=== PATIENT | male | born 1995 | race Caucasian/White ===

== ENCOUNTER 2024-07-11 16:53 | Emergency (ER) | payer OTHER ==
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
[2024-07-11] MEDS ORDERED: IBUPROFEN 200 MG TAB PO ONE (17:22)
[2024-07-11] MEDS ORDERED: CYCLOBENZAPRINE 10 MG TAB ONE (17:23)
[2024-07-11] MEDS ORDERED: IBUPROFEN 400 MG TAB ONE (17:23)
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
[2024-07-11 18:07] VITALS: BP 126/83; TEMP 98; O2SAT 95
--- OUTSIDE RECORDS SUMMARY | 2024-07-11 21:22 | XMS REPORT | Continuity of Care Document ---
Author Name Unknown Address [address] [place] [address] Organization [facility] [place] Address [address] [place] [address] Care Team Providers Care Customer Data Technician Name Role Phone KERRY MCKEON Primary Care Physician Unavailab le UNKNOWN, ATTENDING Attending Clinician Unavailab CATRINA Brar Attending Clinician Unavail able Catrina Ruiz MD Attending Clinician NurseFarrukh Pedpamela Attending Clinician Unavaila ble Unknown, Attending Attending Clinician Unavailab Kerry Connolly PA-C Attending Clinician [phone] KERRY MCKEON Attending Clinician Unavailable 2, [facility] Attending Clinician Unavailable Addison Merchant Attending Clinician [phone] ADDISON SARAVIA Attending Clinician Unavailable YANI SALAZAR Attending Clinician Unavailable VIVEK DANIELS Attending Clinician Unavail able [facility] Attending Clinician Unavailable Unknown, Attending Attending Clinician Unavailab le NurseFarrukh Urgent Attending Clinician UnavailAlex Cheney MD Attending Clinician [phone] Kerry Mckeon PA-C Attending Clinician ALEX MARTÍNEZ Attending Clinician Unavailable Jessica Carlton Attending Clinician JESSICA BARRETT Attending Clinician Unavailable Only, Kemar Roberts Test Attending Clinician Unavailabl e Atilio Becker Attending Clinician + [phone] ATILIO ESCALANTE Attending Clinician Unavailab le Provider, [facility] Attending Clinician Unavailable Doctor Unassigned, Maeser Attending Clinician U navailable Payers Payer Name Policy Type Policy Number Effective Date Expirati on Date Source [facility] [id number] 2023 00:00:00 Problems Condition Name Condition Details Condition Category Status Onset Date Resolution Date Last Treatment Date Treating Clinician Comments Source No known active problems No known active problems Disease [facility] Allergies, Adverse Reactions, Alerts Allergy Name Allergy Type Status Severity Reaction(s) Onset Date Inactive Date Treating Clinician Comments Source NO KNOWN ALLERGIE S Drug Class Active [facility] Social History Social Habit Start Date Stop Date Quantity Comments Source [facility]coholic beverage intake 2024-04-26 00:00:00 2024-04-26 00:00:00 Current drinker of alcohol (finding) [facility] History of Social function 2024-04-26 00:00:00 2024-04-26 00:00:00 [facility] Exposure to SARS-CoV-2 (event) 2022-06-20 00:00:00 2022-06-30 09:22:00 Not sure [facility] History SDOH Alcohol Frequency 2022-06-16 00:00:00 2022-06-16 00:00:00 1 [facility] History SDOH Alcohol Std Drinks 2022-06-16 00:00:00 2022-06-16 00:00:00 0 [facility] History SDOH Alcohol Binge 2022-06-16 00:00:00 2022-06-16 00:00:00 1 [facility] History SDOH Social Connections Phone 2022-06-16 00:00:00 2022-06-16 00:00:00 5 [facility] History SDOH Social Connections Get Together 2022-06-16 00:00:00 2022-06-16 00:00:00 1 [facility] SDOH Social Connections Religion 2022-06-16 00:00:00 2022-06-16 00:00:00 1 [facility] SDOH Social Connections Membership 2022-06-16 00:00:00 2022-06-16 00:00:00 1 [facility] SDOH Social Connections Meetings 2022-06-16 00:00:00 2022-06-16 00:00:00 3 [facility] SDOH Social Connections Living 2022-06-16 00:00:00 2022-06-16 00:00:00 3 [facility] SDOH Physical Activity DPW 2022-06-16 00:00:00 2022-06-16 00:00:00 7 [facility] SDOH Physical Activity MPS 2022-06-16 00:00:00 2022-06-16 00:00:00 15 [facility] SDOH Stress 2022-06-16 00:00:00 2022-06-16 00:00:00 1 [facility] SDOH Financial 2022-06-16 00:00:00 2022-06-16 00:00:00 3 [facility] History SDOH Food Worry 2022-06-16 00:00:00 2022-06-16 00:00:00 2 [facility] SDOH Food Scarcity 2022-06-16 00:00:00 2022-06-16 00:00:00 2 [facility] History SDOH Transport Med 2022-06-16 00:00:00 2022-06-16 00:00:00 2 [facility] History SDOH Transport Non-Med 2022-06-16 00:00:00 2022-06-16 00:00:00 1 [facility] History SDOH Housing Unable to Pay 2022-06-16 00:00:00 2022-06-16 00:00:00 1 [facility] History SDOH Housing Places Lived 2022-06-16 00:00:00 2022-06-16 00:00:00 4 [facility] History SDOH Housing Homeless Last Year 2022-06-16 00:00:00 2022-06-16 00:00:00 1 [facility] Sex assigned at 1995 00:00:00 1995 00:00:00 [facility] Smoking Status Start Date Stop Date Source Never smoked tobacco [facility] Medications Ordered Medication Name Filled Medication Name Start Date Stop Date Current Medication? Ordering Clinician Indication Dosage Frequency Signature (SIG) Comments Components Source fluticasone propionate 50 mcg/actuati on nasal spray 2020-02 00:00: 00 07-21 00:00 :00 No [id number] 1{spray } Use 1 [place] in each nostril daily. [facility] cetirizine 10 mg tablet 2020-02 00:00: 00 05-12 04:59 :00 No [id number] 10mg Take 1 tablet by mouth daily for 90 days. [facility] Guaifenesin 1,200 mg tablet 2020-02 00:00: 00 02-25 05:59 :00 No [id number] 1200mg Take 1 tablet by mouth 2 (two) times daily for 14 days. [facility] benzonatate 200 mg capsule 2020-02 00:00: 00 02-21 05:59 :00 No [id number] 200mg Take 1 capsule by mouth 3 (three) times daily as needed for Cough for up to 10 days. [facility] traMADOL (ULTRAM) 50 mg tablet 2017-02 00:00: 00 07-21 00:00 :00 No 50mg Take 1 tablet by mouth every 6 (six) hours as needed for Pain (scale 7-10). [facility] Immunizations Ordered Immunization Name Filled Immunization Name Date Status Comments Source HPV9 2023-11-04 00:00:00 Completed [facility] Influenza Virus Vaccine 2023-10-29 00:00:00 Completed Influenza Virus Vaccine Quad IM, Preserv and ABX Free 6 MO-64 YRS (FLUCELVAX) 2023-02-14 00:00:00 Completed [facility] HEP B, Adult Dosage 2020-11-26 00:00:00 Completed [facility] Meningococcal Polysaccharide (groups A, C, Y and W-135) conjugate vaccine (MCV4P) 2020-11-26 00:00:00 Completed Influenza Virus Vaccine Quad ID [id number] 2020-11-26 00:00:00 Completed Influenza Virus Vaccine 2020-11-26 00:00:00 Completed HEP B, Adult Dosage 2020-11-26 00:00:00 Completed [facility] Meningococcal Polysaccharide (groups A, C, Y and W-135) conjugate vaccine (MCV4P) 2020-11-26 00:00:00 Completed [facility] Influenza Virus Vaccine Quad ID [id number] 2020-11-26 00:00:00 Completed [facility] Influenza Virus Vaccine 2020-11-26 00:00:00 Completed [facility] HEP B, Adult Dosage 2020-11-26 00:00:00 Completed [facility] Meningococcal Polysaccharide (groups A, C, Y and W-135) conjugate vaccine (MCV4P) 2020-11-26 00:00:00 Completed [facility] Influenza Virus Vaccine Quad ID [id number] 2020-11-26 00:00:00 Completed [facility] Influenza Virus Vaccine 2020-11-26 00:00:00 Completed [facility] HEP B, Adult Dosage 2020-11-26 00:00:00 Completed [facility] Meningococcal Polysaccharide (groups A, C, Y and W-135) conjugate vaccine (MCV4P) 2020-11-26 00:00:00 Completed [facility] Influenza Virus Vaccine Quad ID [id number] 2020-11-26 00:00:00 Completed [facility] Influenza Virus Vaccine 2020-11-26 00:00:00 Completed [facility] HPV9 2020-11-11 00:00:00 Completed [facility] HPV9 2020-11-11 00:00:00 Completed [facility] HPV9 2020-11-11 00:00:00 Completed [facility] HPV9 2020-11-11 00:00:00 Completed [facility] HPV9 2020-11-11 00:00:00 Completed [facility] HPV9 2020-11-11 00:00:00 Completed [facility] TD, NOS 2017-12-22 00:00:00 Completed [facility] Td 2017-12-22 00:00:00 Completed [facility] TD, NOS 2017-12-22 00:00:00 Completed [facility] TD, NOS 2017-12-22 00:00:00 Completed [facility] TD, NOS 2017-12-22 00:00:00 Completed [facility] TD, NOS 2017-12-22 00:00:00 Completed [facility] Meningococcal Oligosaccharide (groups A, C, Y and W-135) conjugate vaccine (MCV4O) 2013-10-02 00:00:00 Completed [facility] HEPATITIS A 2013-10-02 00:00:00 Completed HPV 2013-10-02 00:00:00 Completed [facility] Meningococcal Oligosaccharide (groups A, C, Y and W-135) conjugate vaccine (MCV4O) 2013-10-02 00:00:00 Completed [facility] HEPATITIS A 2013-10-02 00:00:00 Completed [facility] HPV 2013-10-02 00:00:00 Completed [facility] Meningococcal Oligosaccharide (groups A, C, Y and W-135) conjugate vaccine (MCV4O) 2013-10-02 00:00:00 Completed [facility] HEPATITIS A 2013-10-02 00:00:00 Completed [facility] HPV 2013-10-02 00:00:00 Completed [facility] Meningococcal Oligosaccharide (groups A, C, Y and W-135) conjugate vaccine (MCV4O) 2013-10-02 00:00:00 Completed [facility] HEPATITIS A 2013-10-02 00:00:00 Completed [facility] HPV 2013-10-02 00:00:00 Completed [facility] Meningococcal Oligosaccharide (groups A, C, Y and W-135) conjugate vaccine (MCV4O) 2013-10-02 00:00:00 Completed [facility] HEPATITIS A 2013-10-02 00:00:00 Completed [facility] HPV 2013-10-02 00:00:00 Completed [facility] Meningococcal Oligosaccharide (groups A, C, Y and W-135) conjugate vaccine (MCV4O) 2013-10-02 00:00:00 Completed [facility] HEPATITIS A 2013-10-02 00:00:00 Completed [facility] HPV 2013-10-02 00:00:00 Completed [facility] HEPATITIS A 2011-01-07 00:00:00 Completed Influenza Virus Vaccine 2011-01-07 00:00:00 Completed Meningococcal Vaccine 2011-01-07 00:00:00 Completed TDAP 2011-01-07 00:00:00 Completed Varicella (varivax)(chicken pox) 2011-01-07 00:00:00 Completed HEPATITIS A 2011-01-07 00:00:00 Completed [facility] Influenza Virus Vaccine 2011-01-07 00:00:00 Completed [facility] Meningococcal Vaccine 2011-01-07 00:00:00 Completed [facility] TDAP 2011-01-07 00:00:00 Completed [facility] Varicella (varivax)(chicken pox) 2011-01-07 00:00:00 Completed [facility] HEPATITIS A 2011-01-07 00:00:00 Completed [facility] Influenza Virus Vaccine 2011-01-07 00:00:00 Completed [facility] Meningococcal Vaccine 2011-01-07 00:00:00 Completed [facility] TDAP 2011-01-07 00:00:00 Completed [facility] Varicella (varivax)(chicken pox) 2011-01-07 00:00:00 Completed [facility] HEPATITIS A 2011-01-07 00:00:00 Completed [facility] Influenza Virus Vaccine 2011-01-07 00:00:00 Completed [facility] Meningococcal Vaccine 2011-01-07 00:00:00 Completed [facility] TDAP 2011-01-07 00:00:00 Completed [facility] Varicella (varivax)(chicken pox) 2011-01-07 00:00:00 Completed [facility] HEPATITIS A 2011-01-07 00:00:00 Completed [facility] Influenza Virus Vaccine 2011-01-07 00:00:00 Completed [facility] Meningococcal Vaccine 2011-01-07 00:00:00 Completed [facility] TDAP 2011-01-07 00:00:00 Completed [facility] Varicella (varivax)(chicken pox) 2011-01-07 00:00:00 Completed [facility] HEPATITIS A 2011-01-07 00:00:00 Completed [facility] Influenza Virus Vaccine 2011-01-07 00:00:00 Completed [facility] Meningococcal Vaccine 2011-01-07 00:00:00 Completed [facility] TDAP 2011-01-07 00:00:00 Completed [facility] Varicella (varivax)(chicken pox) 2011-01-07 00:00:00 Completed [facility] DTAP 2002-10-03 00:00:00 Completed DTAP 2002-10-03 00:00:00 Completed [facility] DTAP 2002-10-03 00:00:00 Completed [facility] DTAP 2002-10-03 00:00:00 Completed [facility] DTAP 2002-10-03 00:00:00 Completed [facility] DTAP 2002-10-03 00:00:00 Completed [facility] Hep B, Adol or Pedi Dosage 2002-04-25 00:00:00 Completed Polio (IPV/OPV) 2002-04-25 00:00:00 Completed Hep B, Adol or Pedi Dosage 2002-04-25 00:00:00 Completed [facility] Polio (IPV/OPV) 2002-04-25 00:00:00 Completed [facility] Hep B, Adol or Pedi Dosage 2002-04-25 00:00:00 Completed [facility] Polio (IPV/OPV) 2002-04-25 00:00:00 Completed [facility] Hep B, Adol or Pedi Dosage 2002-04-25 00:00:00 Completed [facility] Polio (IPV/OPV) 2002-04-25 00:00:00 Completed [facility] Hep B, Adol or Pedi Dosage 2002-04-25 00:00:00 Completed [facility] Polio (IPV/OPV) 2002-04-25 00:00:00 Completed [facility] Hep B, Adol or Pedi Dosage 2002-04-25 00:00:00 Completed [facility] Polio (IPV/OPV) 2002-04-25 00:00:00 Completed [facility] DTAP 2002-03-06 00:00:00 Completed DTAP 2002-03-06 00:00:00 Completed [facility] DTAP 2002-03-06 00:00:00 Completed [facility] DTAP 2002-03-06 00:00:00 Completed [facility] DTAP 2002-03-06 00:00:00 Completed [facility] DTAP 2002-03-06 00:00:00 Completed [facility] DTAP 2002-01-25 00:00:00 Completed Hep B, Adol or Pedi Dosage 2002-01-25 00:00:00 Completed MMR 2002-01-25 00:00:00 Completed Polio (IPV/OPV) 2002-01-25 00:00:00 Completed DTAP 2002-01-25 00:00:00 Completed [facility] Hep B, Adol or Pedi Dosage 2002-01-25 00:00:00 Completed [facility] MMR 2002-01-25 00:00:00 Completed [facility] Polio (IPV/OPV) 2002-01-25 00:00:00 Completed [facility] DTAP 2002-01-25 00:00:00 Completed [facility] Hep B, Adol or Pedi Dosage 2002-01-25 00:00:00 Completed [facility] MMR 2002-01-25 00:00:00 Completed [facility] Polio (IPV/OPV) 2002-01-25 00:00:00 Completed [facility] DTAP 2002-01-25 00:00:00 Completed [facility] Hep B, Adol or Pedi Dosage 2002-01-25 00:00:00 Completed [facility] MMR 2002-01-25 00:00:00 Completed [facility] Polio (IPV/OPV) 2002-01-25 00:00:00 Completed [facility] DTAP 2002-01-25 00:00:00 Completed [facility] Hep B, Adol or Pedi Dosage 2002-01-25 00:00:00 Completed [facility] MMR 2002-01-25 00:00:00 Completed [facility] Polio (IPV/OPV) 2002-01-25 00:00:00 Completed [facility] DTAP 2002-01-25 00:00:00 Completed [facility] Hep B, Adol or Pedi Dosage 2002-01-25 00:00:00 Completed [facility] MMR 2002-01-25 00:00:00 Completed [facility] Polio (IPV/OPV) 2002-01-25 00:00:00 Completed [facility] DTAP 2001-10-03 00:00:00 Completed HIB 4 Dose Schedule 2001-10-03 00:00:00 Completed Hep B, Adol or Pedi Dosage 2001-10-03 00:00:00 Completed MMR 2001-10-03 00:00:00 Completed Polio (IPV/OPV) 2001-10-03 00:00:00 Completed DTAP 2001-10-03 00:00:00 Completed [facility] HIB 4 Dose Schedule 2001-10-03 00:00:00 Completed [facility] Hep B, Adol or Pedi Dosage 2001-10-03 00:00:00 Completed [facility] MMR 2001-10-03 00:00:00 Completed [facility] Polio (IPV/OPV) 2001-10-03 00:00:00 Completed [facility] DTAP 2001-10-03 00:00:00 Completed [facility] HIB 4 Dose Schedule 2001-10-03 00:00:00 Completed [facility] Hep B, Adol or Pedi Dosage 2001-10-03 00:00:00 Completed [facility] MMR 2001-10-03 00:00:00 Completed [facility] Polio (IPV/OPV) 2001-10-03 00:00:00 Completed [facility] DTAP 2001-10-03 00:00:00 Completed [facility] HIB 4 Dose Schedule 2001-10-03 00:00:00 Completed [facility] Hep B, Adol or Pedi Dosage 2001-10-03 00:00:00 Completed [facility] MMR 2001-10-03 00:00:00 Completed [facility] Polio (IPV/OPV) 2001-10-03 00:00:00 Completed [facility] DTAP 2001-10-03 00:00:00 Completed [facility] HIB 4 Dose Schedule 2001-10-03 00:00:00 Completed [facility] Hep B, Adol or Pedi Dosage 2001-10-03 00:00:00 Completed [facility] MMR 2001-10-03 00:00:00 Completed [facility] Polio (IPV/OPV) 2001-10-03 00:00:00 Completed [facility] DTAP 2001-10-03 00:00:00 Completed [facility] HIB 4 Dose Schedule 2001-10-03 00:00:00 Completed [facility] Hep B, Adol or Pedi Dosage 2001-10-03 00:00:00 Completed [facility] MMR 2001-10-03 00:00:00 Completed [facility] Polio (IPV/OPV) 2001-10-03 00:00:00 Completed [facility] Varicella (varivax)(chicken pox) 1998-06-22 00:00:00 Completed Varicella (varivax)(chicken pox) 1998-06-22 00:00:00 Completed [facility] Varicella (varivax)(chicken pox) 1998-06-22 00:00:00 Completed [facility] Varicella (varivax)(chicken pox) 1998-06-22 00:00:00 Completed [facility] Varicella (varivax)(chicken pox) 1998-06-22 00:00:00 Completed [facility] Varicella (varivax)(chicken pox) 1998-06-22 00:00:00 Completed [facility] HIB 4 Dose Schedule 1997 00:00:00 Completed Polio (IPV/OPV) 1997 00:00:00 Completed HIB 4 Dose Schedule 1997 00:00:00 Completed [facility] Polio (IPV/OPV) 1997 00:00:00 Completed [facility] HIB 4 Dose Schedule 1997 00:00:00 Completed [facility] Polio (IPV/OPV) 1997 00:00:00 Completed [facility] HIB 4 Dose Schedule 1997 00:00:00 Completed [facility] Polio (IPV/OPV) 1997 00:00:00 Completed [facility] HIB 4 Dose Schedule 1997 00:00:00 Completed [facility] Polio (IPV/OPV) 1997 00:00:00 Completed [facility] HIB 4 Dose Schedule 1997 00:00:00 Completed [facility] Polio (IPV/OPV) 1997 00:00:00 Completed [facility] DTAP 1997 00:00:00 Completed HIB 4 Dose Schedule 1997 00:00:00 Completed Hep B, Adol or Pedi Dosage 1997 00:00:00 Completed Polio (IPV/OPV) 1997 00:00:00 Completed DTAP 1997 00:00:00 Completed [facility] HIB 4 Dose Schedule 1997 00:00:00 Completed [facility] Hep B, Adol or Pedi Dosage 1997 00:00:00 Completed [facility] Polio (IPV/OPV) 1997 00:00:00 Completed [facility] DTAP 1997 00:00:00 Completed [facility] HIB 4 Dose Schedule 1997 00:00:00 Completed [facility] Hep B, Adol or Pedi Dosage 1997 00:00:00 Completed [facility] Polio (IPV/OPV) 1997 00:00:00 Completed [facility] DTAP 1997 00:00:00 Completed [facility] HIB 4 Dose Schedule 1997 00:00:00 Completed [facility] Hep B, Adol or Pedi Dosage 1997 00:00:00 Completed [facility] Polio (IPV/OPV) 1997 00:00:00 Completed [facility] DTAP 1997 00:00:00 Completed [facility] HIB 4 Dose Schedule 1997 00:00:00 Completed [facility] Hep B, Adol or Pedi Dosage 1997 00:00:00 Completed [facility] Polio (IPV/OPV) 1997 00:00:00 Completed [facility] DTAP 1997 00:00:00 Completed [facility] HIB 4 Dose Schedule 1997 00:00:00 Completed [facility] Hep B, Adol or Pedi Dosage 1997 00:00:00 Completed [facility] Polio (IPV/OPV) 1997 00:00:00 Completed [facility] DTAP Unknown Completed [facility] HIB 4 Dose Schedule Unknown Completed [facility] HEPATITIS A Unknown Completed [facility] Hep B, Adol or Pedi Dosage Unknown Completed [facility] Influenza Virus Vaccine Unknown [facility] [facility] Meningococcal Vaccine Unknown Completed [facility] MMR Unknown Completed [facility] Polio (IPV/OPV) Unknown Completed [facility] TDAP Unknown Completed [facility] Varicella (varivax)(chicken pox) Unknown Completed [facility] TD, NOS Unknown Completed [facility] HPV9 Unknown Completed [facility] HEP B, Adult Dosage Unknown Completed [facility] Meningococcal Polysaccharide (groups A, C, Y and W-135) conjugate vaccine (MCV4P) Unknown Completed [facility] Influenza Virus Vaccine Quad ID [id number] [id number] Unknown Completed [facility] Influenza Virus Vaccine Quad IM, Preserv and ABX Free 6 MO-64 YRS (FLUCELVAX) Unknown Completed [facility] Meningococcal Oligosaccharide (groups A, C, Y and W-135) conjugate vaccine (MCV4O) Unknown Completed [facility] HEPATITIS A Unknown Completed [facility] HPV Unknown Completed [facility] DTAP Unknown Completed [facility] HIB 4 Dose Schedule Unknown Completed [facility] Hep B, Adol or Pedi Dosage Unknown Completed [facility] Influenza Virus Vaccine Unknown Completed [facility] Meningococcal Vaccine Unknown Completed [facility] MMR Unknown Completed [facility] Polio (IPV/OPV) Unknown Completed [facility] TDAP Unknown Completed [facility] Varicella (varivax)(chicken pox) Unknown Completed [facility] TD, NOS Unknown Completed [facility] HPV9 Unknown Completed [facility] HEP B, Adult Dosage Unknown Completed [facility] Meningococcal Polysaccharide (groups A, C, Y and W-135) conjugate vaccine (MCV4P) Unknown Completed [facility] Influenza Virus Vaccine Quad ID [id number] [id number] Unknown Completed [facility] Influenza Virus Vaccine Quad IM, Preserv and ABX Free 6 MO-64 YRS (FLUCELVAX) Unknown Completed [facility] Meningococcal Oligosaccharide (groups A, C, Y and W-135) conjugate vaccine (MCV4O) Unknown Completed [facility] HEPATITIS A Unknown Completed [facility] HPV Unknown Completed [facility] DTAP Unknown Completed [facility] HIB 4 Dose Schedule Unknown Completed [facility] Hep B, Adol or Pedi Dosage Unknown Completed [facility] Influenza Virus Vaccine Unknown Completed [facility] Meningococcal Vaccine Unknown Completed [facility] MMR Unknown Completed [facility] Polio (IPV/OPV) Unknown Completed [facility] TDAP Unknown Completed [facility] Varicella (varivax)(chicken pox) Unknown Completed [facility] TD, NOS Unknown Completed [facility] HPV9 Unknown Completed [facility] HEP B, Adult Dosage Unknown Completed [facility] Meningococcal Polysaccharide (groups A, C, Y and W-135) conjugate vaccine (MCV4P) Unknown Completed [facility] Influenza Virus Vaccine Quad ID [id number] [id number] Unknown Completed [facility] Influenza Virus Vaccine Quad IM, Preserv and ABX Free 6 MO-64 YRS (FLUCELVAX) Unknown Completed [facility] Meningococcal Oligosaccharide (groups A, C, Y and W-135) conjugate vaccine (MCV4O) Unknown Completed [facility] HEPATITIS A Unknown Completed [facility] HPV Unknown Completed [facility] DTAP Unknown Completed [facility] HIB 4 Dose Schedule Unknown Completed [facility] Hep B, Adol or Pedi Dosage Unknown Completed [facility] Influenza Virus Vaccine Unknown Completed [facility] Meningococcal Vaccine Unknown Completed [facility] MMR Unknown Completed [facility] Polio (IPV/OPV) Unknown Completed [facility] TDAP Unknown Completed [facility] Varicella (varivax)(chicken pox) Unknown Completed [facility] TD, NOS Unknown Completed [facility] HPV9 Unknown Completed [facility] HEP B, Adult Dosage Unknown Completed [facility] Meningococcal Polysaccharide (groups A, C, Y and W-135) conjugate vaccine (MCV4P) Unknown Completed [facility] Influenza Virus Vaccine Quad ID [id number] [id number] Unknown Completed [facility] Influenza Virus Vaccine Quad IM, Preserv and ABX Free 6 MO-64 YRS (FLUCELVAX) Unknown Completed [facility] Meningococcal Oligosaccharide (groups A, C, Y and W-135) conjugate vaccine (MCV4O) Unknown Completed [facility] HPV Unknown Completed [facility] Meningococcal Vaccine Unknown Completed [facility] TDAP Unknown Completed [facility] TD, NOS Unknown Completed [facility] HPV9 Unknown Completed [facility] HEP B, Adult Dosage Unknown Completed [facility] Meningococcal Polysaccharide (groups A, C, Y and W-135) conjugate vaccine (MCV4P) Unknown Completed [facility] Influenza Virus Vaccine Quad ID [id number] [id number] Unknown Completed [facility] Influenza Virus Vaccine Quad IM, Preserv and ABX Free 6 MO-64 YRS (FLUCELVAX) Unknown Completed [facility] Meningococcal Oligosaccharide (groups A, C, Y and W-135) conjugate vaccine (MCV4O) Unknown Completed [facility] HEPATITIS A Unknown Completed [facility] HPV Unknown Completed [facility] DTAP Unknown Completed [facility] HIB 4 Dose Schedule Unknown Completed [facility] Hep B, Adol or Pedi Dosage Unknown Completed [facility] Influenza Virus Vaccine Unknown Completed [facility] Meningococcal Vaccine Unknown Completed [facility] MMR Unknown Completed [facility] Polio (IPV/OPV) Unknown Completed [facility] TDAP Unknown Completed [facility] Varicella (varivax)(chicken pox) Unknown Completed [facility] TD, NOS Unknown Completed [facility] HPV9 Unknown Completed [facility] HEP B, Adult Dosage Unknown Completed [facility] Meningococcal Polysaccharide (groups A, C, Y and W-135) conjugate vaccine (MCV4P) Unknown Completed [facility] Influenza Virus Vaccine Quad ID [id number] YRS Unknown Completed [facility] Influenza Virus Vaccine Quad IM, Preserv and ABX Free 6 MO-64 YRS (FLUCELVAX) Unknown Completed [facility] HEPATITIS A Unknown Completed [facility] DTAP Unknown Completed [facility] HIB 4 Dose Schedule Unknown Completed [facility] Hep B, Adol or Pedi Dosage Unknown Completed [facility] Influenza Virus Vaccine Unknown Completed [facility] MMR Unknown Completed [facility] Polio (IPV/OPV) Unknown Completed [facility] Varicella (varivax)(chicken pox) Unknown Completed [facility] Meningococcal Oligosaccharide (groups A, C, Y and W-135) conjugate vaccine (MCV4O) Unknown Completed [facility] HPV Unknown Completed [facility] Vital Signs Vital Name Observation Time Observation Value Comments S ource Systolic blood pressure 2024-04-26 20:27:00 130 mm[Hg] [facility] Diastolic blood pressure 2024-04-26 20:27:00 80 mm[Hg] [facility] Heart rate 2024-04-26 20:27:00 80 /min [facility] Body temperature 2024-04-26 20:27:00 36.78 Sue [facility] Respiratory rate 2024-04-26 20:27:00 18 /min [facility] Body height 2024-04-26 20:27:00 170.2 cm [facility] Body weight 2024-04-26 20:27:00 103.783 kg [facility] BMI 2024-04-26 20:27:00 35.84 kg/m2 [facility] Oxygen saturation in Arterial blood by Pulse oximetry 2024-04-26 20:27:00 98 /min [facility] Body temperature 2023-11-04 20:46:00 36.11 Sue [facility] Systolic blood pressure 2023-07-22 19:47:00 117 mm[Hg] [facility] Diastolic blood pressure 2023-07-22 19:47:00 83 mm[Hg] [facility] Heart rate 2023-07-22 19:47:00 88 /min [facility] Body temperature 2023-07-22 19:47:00 36.83 Sue [facility] Respiratory rate 2023-07-22 19:47:00 18 /min [facility] Body height 2023-07-22 19:47:00 170.2 cm [facility] Body weight 2023-07-22 19:47:00 103.103 kg [facility] BMI 2023-07-22 19:47:00 35.60 kg/m2 [facility] Oxygen saturation in Arterial blood by Pulse oximetry 2023-07-22 19:47:00 96 /min [facility] Systolic blood pressure 2022-06-30 14:38:00 120 mm[Hg] [facility] Diastolic blood pressure 2022-06-30 14:38:00 72 mm[Hg] [facility] Heart rate 2022-06-30 14:38:00 76 /min [facility] Body temperature 2022-06-30 14:38:00 36.11 Sue [facility] Respiratory rate 2022-06-30 14:38:00 18 /min [facility] Body height 2022-06-30 14:38:00 172.7 cm [facility] Body weight 2022-06-30 14:38:00 104.327 kg [facility] BMI 2022-06-30 14:38:00 34.97 kg/m2 [facility] Systolic blood pressure 2022-06-16 18:06:00 119 mm[Hg] [facility] Diastolic blood pressure 2022-06-16 18:06:00 89 mm[Hg] [facility] Heart rate 2022-06-16 18:06:00 100 /min [facility] Body temperature 2022-06-16 18:04:00 35.67 Sue [facility] Respiratory rate 2022-06-16 18:04:00 18 /min [facility] Body height 2022-06-16 18:04:00 170.2 cm [facility] Body weight 2022-06-16 18:04:00 105.943 kg [facility] BMI 2022-06-16 18:04:00 36.58 kg/m2 [facility] Systolic blood pressure 2022-06-14 17:23:00 132 mm[Hg] [facility] Diastolic blood pressure 2022-06-14 17:23:00 91 mm[Hg] [facility] Heart rate 2022-06-14 17:23:00 107 /min [facility] Body temperature 2022-06-14 17:23:00 36.94 Sue [facility] Respiratory rate 2022-06-14 17:23:00 17 /min [facility] Body height 2022-06-14 17:23:00 170.2 cm [facility] Body weight 2022-06-14 17:23:00 105.008 kg [facility] BMI 2022-06-14 17:23:00 36.26 kg/m2 [facility] Oxygen saturation in Arterial blood by Pulse oximetry 2022-06-14 17:23:00 97 /min [facility] Systolic blood pressure 2021-02-10 19:37:00 127 mm[Hg] [facility] Diastolic blood pressure 2021-02-10 19:37:00 86 mm[Hg] [facility] Heart rate 2021-02-10 19:37:00 86 /min [facility] Body temperature 2021-02-10 19:37:00 37 Sue [facility] Respiratory rate 2021-02-10 19:37:00 18 /min [facility] Body weight 2021-02-10 19:37:00 97.977 kg [facility] BMI 2021-02-10 19:37:00 33.83 kg/m2 [facility] Oxygen saturation in Arterial blood by Pulse oximetry 2021-02-10 19:37:00 98 /min [facility] Procedures Procedure Date / Time Performed Performing Clinicia n Source GARDASIL 9 (HPV 9V) VACCINE 2023-11-04 20:11:29 Kerry Mckeon [facility] FLU VACC (), 6 MO-64 YRS, .5ML, IM, QUAD (FLUCELVAX) 2023-02-14 20:10:33 Doctor Unassigned, [place] [facility] POCT MOLECULAR FLU 2021-02-10 19:48:00 Kerry Mckeon [facility] Encounters Start Date/Time End Date/Time Encounter Type Admission Type Attending [facility] Care Facility Care Department Encounter ID Source 2024-07-12 15:00:00 2024-07-12 15:00:00 Outpatient R UNKNOWN, ATTENDING [facility] [id number] [facility] 2024-07-11 17:00:00 2024-07-11 17:00:[address] [facility] [id number] [facility] 2024-04-26 14:30:00 2024-04-26 14:56:09 Outpatient R [address]INA RUIZ [facility] [id number] [facility] 2024-04-26 14:30:00 2024-04-26 14:56:09 Office Visit Catrina [facility] 1..114 350.1.13.10 4.2.7.2.686 [id number] [facility] 2024-04-24 15:50:00 2024-04-24 16:00:00 Nurse Visit Nurse, Farrukh [facility] Unknown, Attending Nurse, Farrukh [facility] 1.840.114 350.1.13.10 4.2.7.2.686 [id number] [facility] 2024-04-24 15:50:00 2024-04-24 15:50:00 Outpatient R UNKNOWN, ATTENDING [facility] [id number] [facility] 2023-11-04 15:10:00 2023-11-04 15:20:00 Nurse Visit Nurse, Farrukh [facility] Pedi Kerry Mckeon Nurse, Farrukh [facility] 1.840.114 350.1.13.10 4.2.7.2.686 [id number] [facility] 2023-11-04 15:10:00 2023-11-04 15:10:00 Outpatient R MCKEONKERRY PRADO [facility] [id number] [facility] 2023-09-29 00:00:00 2023-09-29 11:29:05 Telephone Kerry Mckeon [facility] 1..840.114 350.1.13.10 4.2.7.2.686 [id number] [facility] 2023-09-29 10:20:00 2023-09-29 10:20:[address] [facility] [id number] [facility] 2023-07-22 15:15:00 2023-07-22 15:30:00 Solar Site Assessment Specialist Visit 2, [facility] 1.2.840.114 350.1.13.10 4.2.7.2.686 [id number] [facility] 2023-07-22 14:30:00 2023-07-22 15:04:14 Outpatient [facility] [id number] [facility] 2023-07-22 14:30:00 2023-07-22 15:04:14 [facility] 1..840.114 350.1.13.10 4.2.7.2.686 [id number] [facility] 2023-02-17 15:00:00 2023-02-17 15:00:[address] [facility] [id number] [facility] 2023-02-14 14:00:00 2023-02-14 14:23:[address] [facility] [id number] [facility] 2023-02-14 14:00:00 2023-02-14 14:23:03 Imm/Inj Visit Shots, [facility] Flu Unknown, Attending [facility] 1..840.114 350.1.13.10 4.2.7.2.686 [id number] [facility] 2023-02-14 00:00:00 2023-02-14 00:00:00 Letter (Out) Nurse, Farrukh Urgent [facility] 1.0.114 350.1.13.10 4.2.7.2.686 [id number] [facility] 2022-07-07 11:00:00 2022-07-07 11:00:[address] [facility] [id number] [facility] 2022-07-01 00:00:00 2022-07-01 00:00:00 Telephone Alex Martínez [facility] 1.0.114 350.1.13.10 4.2.7.2.686 [id number] [facility] 2022-06-30 09:30:00 2022-06-30 10:00:00 Office Visit Kerry Mckeon James Y ALVIN [facility] 1.0.114 350.1.13.10 4.2.7.2.686 [id number] [facility] 2022-06-30 09:30:00 2022-06-30 09:30:[address] [facility] [id number] [facility] 2022-06-16 13:00:00 2022-06-16 13:30:00 Office Visit Kerry Mckeon [facility] 1.0.114 350.1.13.10 4.2.7.2.686 [id number] [facility] 2022-06-16 13:00:00 2022-06-16 13:00:00 Outpatient R KERRY MCKEON [facility] [id number] [facility] 2022-06-14 12:00:00 2022-06-14 12:20:00 Urgent Care Jessica Barrett Unknown, Attending [facility] 1.2.840.114 350.1.13.10 4.2.7.2.686 [id number] [facility] 2022-06-14 12:00:00 2022-06-14 12:00:00 Outpatient R NENA JESSICA [facility] [id number] [facility] 2021-02-10 13:30:00 2021-02-10 15:09:06 Outpatient [address] KERRY MCKEON [facility] [id number] [facility] 2021-02-10 13:30:00 2021-02-10 14:00:00 Office Visit Kerry Mckeon [facility] 1..840.114 350.1.13.10 4.2.7.2.686 [id number] [facility] 2021-02-10 13:30:00 2021-02-10 13:30:00 Outpatient R KERRY MCKEON [facility] [id number] [facility] 2020-11-19 15:00:33 2020-11-19 15:15:33 Laboratory Only Only, Ang Db Test Atilio Escalante [facility] 1.2.840.114 350.1.13.10 4.2.7.2.686 [id number] [facility] 2020-11-19 15:00:00 2020-11-19 15:00:00 Outpatient R ATILIO ESCALANTE [facility] [id number] [facility] 2020-11-19 00:00:00 2020-11-19 00:00:00 Letter (Out) Provider, [facility] C[facility] 1.2.840.114 350.1.13.10 4.2.7.2.686 [id number] [facility] 2020-11-11 09:48:49 2020-11-11 10:41:21 Office Visit Kerry [facility]ke[facility] 1.2.840.114 350.1.13.10 4.2.7.2.686 [id number] [facility] 2020-11-11 10:00:00 2020-11-11 10:00:00 Outpatient R KERRY MCKEON [facility] [id number] [facility] 2020-11-11 00:00:00 2020-11-11 00:00:00 Orders Only Doctor Unassigned, [place] [facility] 1.2.840.114 350.1.13.10 4.2.7.2.686 [id number] [facility] 2020-11-11 00:00:00 2020-11-11 00:00:00 Orders Only Doctor Unassigned, [place] [facility] 1.2.840.114 350.1.13.10 4.2.7.2.686 [id number] [facility] 2020-11-08 17:45:00 2020-11-08 17:45:00 Outpatient R UNKNOWN, ATTENDING [facility] [id number] [facility] Results Test Description Test Time Test Comments Results Result Co mments Source [facility] Notes Date/Time Note Provider Source 2023-09-29 08:16:28 Left message on voicemail for patient to call office back Patient has a flu vaccine appt, no vaccines available until Oct/Nov when the flu season starts Anu Paz MA [facility] 2023-07-22 15:15:00 Images from the original note were not included. Venipuncture collection performed by clean technique on the left anticubitus. Total of 1 attempts were made. Slight pressure and a bandage/dressing were applied to the site(s). The patient experienced no complications. The following specimens were processed according to instructions and sent to [facility] laboratories per lab order on 07/22/2023 : LT BLUE SST 3 RED 1 LAV 1 PPT DK GREEN (LiHep) DK GREEN (SodH) LINDQUIST DK BLUE (K2) DK BLUE (S) ACD Blood Culture NIPT/NTD Pt did urine in clinic [employer] student Vandana performed Venipuncture [facility]
== END 2024-07-11 17:51 | disposition home or self-care (01) ==
LOC: ER 16:53
DX: M62.830 Muscle spasm of back (principal); V53.5XXA Driver of pick-up truck or van injured in collision with car, pick-up truck or van in traffic accident, initial encounter